=== PATIENT | male | born 2000 | race African-American/Black ===

== ENCOUNTER 2022-03-24 21:11 | Inpatient (IN) ==
[2022-03-24] MEDS ORDERED: Nicotine PATCH 21 MG/24 HR PATCH TRANSDERM ONE (21:55)
[2022-03-24] MEDS: Nicotine GUM 4MG FRUIT FLAVOR PO PRN (22:10)
[2022-03-24 22:27] LABS: ABS Lymphocytes 1.4 10^3/ul (1.0-4.8); ABS Monocytes 0.5 10^3/ul (0-0.8); ABS Neutrophils 6.3 10^3/ul (1.5-7.7); Eosinophil % 0.3 %; Hematocrit 45 % (42-52); Hemoglobin 15.3 g/dL (14.0-18.0); Lymphocyte % 16.6 %; Mean Corpuscular HGB Conc 34 g/dL (31-36); Mean Corpuscular Hemoglobin 30 pg (27-31); Mean Corpuscular Volume 89 fL (80-94); Mean Platelet Volume 7.3 fL (7.4-10.4); Platelet Count 237 10^3/uL (150-450); Red Blood Count 5.01 10^6 /uL (4.18-5.48); Red Cell Distribution Width 14 % (10-15); White Blood Count 8.2 10^3/uL (3.5-10.8)
[2022-03-24 22:29] LABS: Urine Appearance Cloudy; Urine Bilirubin Negative (Negative); Urine Blood Negative (Negative); Urine Color Amber; Urine Glucose Negative (Negative); Urine Ketones Trace (Negative); Urine Nitrite Negative (Negative); Urine Protein 2+(100 mg/dL) (Negative); Urine Specific Gravity 1.025 (1.002-1.030); Urine Urobilinogen Negative (Negative)
[2022-03-24 22:34] LABS: Urine Bacteria Absent (Absent); Urine Granular Casts Present (Absent); Urine Red Blood Cell Trace(0-2/hpf) (Absent); Urine Squamous Epithelial Cell Present (Absent); Urine White Blood Cell Trace(0-5/hpf) (Absent)
[2022-03-24 23:05] LABS: ALT 16 U/L (7-52); AST 15 U/L (13-39); Acetaminophen < 15 mcg/mL; Albumin 4.8 g/dL (3.2-5.2); Albumin/Globulin Ratio 1.9 (1-3); Alcohol, S < 13 mg/dL (<13); Alkaline Phosphatase 53 U/L (35-149); Anion Gap 12 mmol/L (2-11); Blood Urea Nitrogen 15 mg/dL (6-24); CO2 Carbon Dioxide 23 mmol/L (22-32); Calcium 9.9 mg/dL (8.6-10.3); Chloride 99 mmol/L (101-111); Globulin 2.5 g/dL (2-4); Glucose 127 mg/dL (70-100); Potassium 3.9 mmol/L (3.5-5.0); Salicylate < 2.50 mg/dL (<30); Sodium 134 mmol/L (135-145); Total Protein 7.3 g/dL (6.4-8.9); eGFR CKD-EPI 118.3 (>60)
[2022-03-24 23:09] LABS: Urine Benzodiazepine Screen None Detected (None Detect); Urine Cannabinoids Screen Presumptive Positive (None Detect); Urine Opiates Screen None Detected (None Detect)
[2022-03-24 23:18] LABS: TSH Ultra Thyroid Stim Horm 1.21 mcIU/mL (0.34-5.60)
[2022-03-25] MEDS: Nicotine GUM 4MG FRUIT FLAVOR PO PRN ×5 (03:36→19:25)
[2022-03-25] MEDS ORDERED: Al Hydrox/Mg Hydrox/Simet LIQ 30 ML UDC PO PRN (08:45)
[2022-03-25] MEDS ORDERED: OLANZapine IM (NF) 10 MG VIAL IM ONE (12:31)
[2022-03-26 07:53] LABS: HDL Cholesterol 66.4 mg/dL
[2022-03-26] MEDS: Nicotine GUM 4MG FRUIT FLAVOR PO PRN ×3 (08:28→18:18)
[2022-03-27] MEDS: Nicotine GUM 4MG FRUIT FLAVOR PO PRN ×4 (10:04→18:27)
[2022-03-28] MEDS: Nicotine GUM 4MG FRUIT FLAVOR PO PRN ×4 (11:02→19:12)
[2022-03-29] MEDS: Nicotine GUM 4MG FRUIT FLAVOR PO PRN ×3 (10:01→17:25)
[2022-03-30 08:52] VITALS: BP 115/74
[2022-03-30] MEDS: Nicotine GUM 4MG FRUIT FLAVOR PO PRN ×2 (08:52→11:14)
== END 2022-03-30 11:59 | disposition home or self-care (01) | DRG 897 ==
LOC: EDBD → ED 21:11 → EDHOLD 03-25 08:45 → BSU 03-25 12:48
PROVIDERS: ADMIT Psychiatry & Neurology Psychiatry; ATTEND Psychiatry & Neurology Psychiatry